=== PATIENT | female | born 1970 | race Caucasian/White ===

== ENCOUNTER 2021-03-19 16:38 | Emergency (ER) | payer BC, SELFPAY ==
[2021-03-19 16:50] VITALS: BP 152/102; PULSE 99; RESP 18; TEMP 37.4; O2SAT 100
--- NOTE | 2021-03-19 17:09 | ED.FEMALEGU ---
HPI - Female Genitourinary General Chief complaint: Urogenital-Female Stated complaint: UTI Source: patient and RN notes reviewed Mode of arrival: ambulatory Limitations: no limitations History of Present Illness HPI Narrative: Dee Dee is a 51-year-old female patient who ambulated into the [facility] today with complaint of painful and frequent urination. Patient states it started within the last 2 days. Patient denies any back pain, fever, or chills. Patinet states she has swelling near her [place] gland; denies pain. MD elicited complaint: dysuria Related Data Home Medications Medication Instructions Recorded Confirmed No Home Medications 03/19/21 03/19/21 Allergies Allergy/AdvReac Type Severity Reaction Status Date / Time No Known Allergies Allergy Mild Verified 03/19/21 16:55 Review of Systems Review of Systems: CONSTITUTIONAL: Denies body aches, fever, chills, or sweats. EYES: Denies visual changes, redness, or discharge. ENT: Denies rhinorrhea, congestion, sore throat, or otalgia. CARDIOVASCULAR: Denies chest pain, palpitations, or edema. RESPIRATORY: Denies cough or dyspnea. GASTROINTESTINAL: Denies abdominal pain, nausea, vomiting, or diarrhea. GENITOURINARY: + dysuria denies hematuria. SKIN: Denies rash, itching, or wounds. MUSCULOSKELETAL: Denies back pain, joint pain, or myalgia. NEUROLOGIC: Denies headache, numbness, tingling, or weakness. PSYCH: Denies depression or anxiety. All systems reviewed & are unremarkable except as noted in HPI and below Exam Narrative: GENERAL: Well-appearing, well-nourished, and in no acute distress. HEAD: Normocephalic, atraumatic. EYES: EOMI. No redness or drainage. Conjunctivae normal. ENT: Mucous membranes pink and moist. Nares clear. No rhinorrhea. NECK: Normal AROM. Supple. No lymphadenopathy. CHEST: No respiratory distress. Clear to auscultation. ABDOMEN: Soft, nontender, nondistended, normal active bowel sounds. MUSCULOSKELETAL: No bony tenderness. EXTREMITIES: Normal range of motion. No edema. SKIN: Warm, dry, no rash. Capillary refill normal. Normal skin turgor. NEURO: No focal deficits. Alert and oriented x3. Gait steady. PSYCH: Normal affect. No signs of depression or anxiety. Course Vital Signs Vital signs: Vital Signs Temperature 37.4 C 03/19/21 16:50 Pulse Rate 99 03/19/21 16:50 Respiratory Rate 18 03/19/21 16:50 Blood Pressure 152/102 H 03/19/21 16:50 Pulse Oximetry 100 03/19/21 16:50 Temperature 37.4 C 03/19/21 16:50 Pulse Rate 99 03/19/21 16:50 Respiratory Rate 18 03/19/21 16:50 Blood Pressure 152/102 H 03/19/21 16:50 Pulse Oximetry 100 03/19/21 16:50 Reviewed. Pt has been instructed to follow up with her PCP regarding her elevated blood pressure today. MDM - Female Genitourinary MDM Narrative Medical decision making narrative: Patient has 1+ leukocyte in her urine. Patient has urinary frequency and painful urination. Patient states she does not want a gynecologic exam. Patient states she will go to her primary care for that exam if it is needed. Differential Diagnosis Differential diagnosis: Likely urinary tract infection, cystitis and other (cyst of skene's gland) Medical Records Attestation: I reviewed the patient's medical records. Lab Data Attestation: I reviewed the patient's lab results. Labs: Urine Glucose Negative Reference Range: Negative Urine Bilirubin Negative Reference Range: Negative Urine Ketone Negative Reference Range: Negative Urine Specific Bude 1.020 Reference Range:1.001-1.035 Urine Blood Negative Reference Range: Negative
== END 2021-03-19 17:24 | disposition home or self-care (01) ==
PROVIDERS: Emergency Provider Nurse Practitioner Family
DX: N39.0 Urinary tract infection, site not specified (principal)
CPT/HCPCS: 81003; 87077; 87086; 87088; 87186; 99213; G0463

== ENCOUNTER 2024-07-20 12:53 | Emergency (ER) | payer BC, SELFPAY ==
--- NOTE | ~2024-07-20 | CT_ITS ---
EXAMINATION: CT abdomen pelvis w con DATE: 07/20/2024 18:11 INDICATION: abdominal pain TECHNIQUE: Computed tomography (CT) of the abdomen and pelvis was performed with 100 mL Omnipaque-350 intravenous contrast. Automated exposure control and iterative reconstruction technique were employe d. The dose-length product was 240.79 mGy-cm. COMPARISON: None. FINDINGS: Lower thorax: Unremarkable Liver: Multiple cysts and/or hemangiomas and lesions that are too small to characterize. Biliary/Gallbladder: Gallbladder is normal. No bile duct dilation. Pancreas: No mass or duct dilation. Spleen: Normal. Adrenals:No mass. Kidneys: No suspicious mass, obstructing stone, or hydronephrosis. Bilateral subcentimeter renal hypo densities, too small to characterize but most likely represent cysts GI tract: Mild distal esophageal and gastric wall edema. No small or large bowel dilation. Normal skylar endix. Mesentery/Peritoneum: No ascites, mass, or free air. Retroperitoneum: No mass. Mild atherosclerotic arterial calcifications. Pelvis: Pelvic organs are within normal limits. Soft Tissues: Soft tissues and body wall unremarkable. Bones: No acute osseous finding. IMPRESSION: Mild esophagitis/gastritis. Otherwise, no acute abdominopelvic process detected Reviewed, dictated and finalized at location K. ING SPECIALIST
[2024-07-20 13:01] VITALS: BP 115/69; PULSE 91; RESP 18; TEMP 36.4; O2SAT 100
--- OUTSIDE RECORDS SUMMARY | 2024-07-20 14:33 | XMS_ITS | Encounter Summary ---
Author Organization [facility] Address [address] [place] [address] Care Team Providers Care Customer Field Representative Name Role Phone Unavailable Primary Care Provider Unavailabl e Encounter Details Date Type Department Care Team (Latest Contact Info) Description 09/12/2000 Outpatient Historical [facility] Bienvenido Terry MD [address] [facility] [address] [place], [place] [id number] Unspecified hearing loss (Primary Dx) Social History Tobacco Use Types Packs/Day Years Used Date Smoking Tobacco: Never Assessed Comments Unknown Sex and Gender Information Value Date Recorded Sex Assigned at Not on file Legal Sex Female 4:37 AM SHIPPER AND RECEIVING Gender Identity Not on file Sexual Orientation Not on file documented as of this encounter Plan of Treatment Not on file documented as of this encounter Visit Diagnoses Diagnosis Unspecified hearing loss- Primary documented in this encounter
--- OUTSIDE RECORDS SUMMARY | 2024-07-20 14:33 | XMS_ITS | Clinical Summary ---
Author Organization [facility] Address [address] [place] [address] Care Team Providers Care Delivery Person Name Role Phone Chato Truong DO Primary Care Provider + Allergies Active Allergy Reactions Criticality Noted Date Comments Amoxicillin Other (see comment) 02/09/2019 Abdominal cramping Erythromycin Nausea and Vomiting,Nausea Only,Other (see comment),Vomiting Low 02/09/2019 Reaction: Nausea, Vomiting, Medications No known medications Active Problems Problem Noted Date Diagnosed Date IFG (impaired fasting glucose) 01/30/2019 Atopic rhinitis 10/10/2013 Overview (01/18/2021): ALLERGIC RHINITIS NOS Immunizations Name Administration Dates Next Due Influenza (Generic) 02/24/2013 Influenza Adult (Generic) 03/27/2015 Tdap (Generic) 09/25/2015 Family History Medical History Relation Comments Diabetes Paternal Aunt Relation Status Comments Paternal Aunt Social History Tobacco Use Types Packs/Day Years Used Date Smoking Tobacco: Never Smokeless Tobacco: Never PHQ-2 Answer Date Recorded PHQ-2 Score - If the patient scores above 3, please move on to questions 3-9 0 01/18/2021 Comments Unknown Sex and Gender Information Value Date Recorded Sex Assigned at Not on file Legal Sex Female 2:03 PM CDT Gender Identity Not on file Sexual Orientation Not on file Occupation Industry Job Start Date Job End Date Not on file Not on file Not on file Not on file Last Filed Vital Signs Vital Sign Reading Time Taken Comments Blood Pressure 145/94 01/18/2021 1:57 PM CDT Pulse 80 01/18/2021 1:12 PM CDT Temperature 36.4 C (97.5 F) 01/18/2021 1:12 PM CDT Respiratory Rate 16 01/18/2021 1:12 PM CDT Oxygen Saturation 100% 01/18/2021 1:12 PM CDT Inhaled Oxygen Concentration - - Weight 58.5 kg (129 lb) 01/18/2021 1:12 PM CDT Height 158.8 cm (5' 2.5 ) 01/18/2021 1:12 PM CDT Body Mass Index 23.22 01/18/2021 1:12 PM CDT Plan of Treatment Health Maintenance Due Date Last Done Comments Cervical Cancer Screening Pa p Smear (Age 30 to 64) Every 3 Years 1972 Colorectal Cancer Screening Colonoscopy (10 Years) 1972 Hepatitis C 1990 Hepatitis B Vaccines (1 of 3 - 19+ 3-dose series) 1991 Cervical Cancer Screening Pa p with HPV Testing (Age 30 to 64) Every 5 Years 2002 Cervical Cancer Screening wi HPV 2002 Mammogram Screening 2012 Annual Physical 01/18/2022 01/18/2021 Zoster Vaccines (1 of 2) 2022 COVID-19 Vaccine (1 - 2023-2 5 season) 2024 Influenza Adult (#1) 2024 03/27/2015, 02/24/2013 DTaP, Tdap and Td Vaccines ( 2 - Td or Tdap) 09/24/2025 09/25/2015 Meningococcal B Vaccine Aged Out No l onger eligible based on patient's age to complete this topic Meningococcal Vaccine Aged Out No judi shannon eligible based on patient's age to complete this topic Pneumococcal Vaccine: Pediatrics (0 to 5 Years) and At-Risk Patients (6 to 64 Years) Aged Out No longer eligible b ased on patient's age to complete this topic RSV Immunizations Under 20 Months Aged Out No longer eligible b ased on patient's age to complete this topic Insurance [facility] Care Teams Delivery Person Relationship Specialty Start Date End Date Chato Truong DO [address] [place] [id number] PCP - General FAMILY PRACTICE 01/18/21
--- OUTSIDE RECORDS SUMMARY | 2024-07-20 14:33 | XMS_ITS | Encounter Summary ---
Author Organization [facility] Address [address] [place] [address] Care Team Providers Care Special Needs Teacher Name Role Phone Unavailable Primary Care Provider Unavailabl e Reason for Visit * Reason Onset Date Comments Follow Up 02/12/2019 351 phone number is disconnected Encounter Details Date Type Department Care Team (Late st Contact Info) Description 02/12/2019 Telephone [facility] [address] [place] [address] Stefani Montoya MD NO ADDRESS ON FILE Follow Up (351 phone number is disconnected) Social History Tobacco Use Types Packs/Day Years Used Date Smoking Tobacco: Never Alcohol Use Standard Drinks/Week Comments Yes 1 (1 standard drink = 0.6 oz pur e alcohol) Comments No Sex and Gender Information Value Date Recorded Sex Assigned at Not on file Legal Sex Female 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
--- OUTSIDE RECORDS SUMMARY | 2024-07-20 14:33 | XMS_ITS | Encounter Summary ---
Author Organization [facility] Address 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
--- OUTSIDE RECORDS SUMMARY | 2024-07-20 14:33 | XMS_ITS | Encounter Summary ---
Author Organization [facility] Address [address] [place] [address] Care Team Providers Care Hr Business Partner Consultant Name Role Phone Unavailable Primary Care Provider Unavailabl e Encounter Details Date Type Department Care Team (Late st Contact Info) Description 08/16/2004 Outpatient Historical [facility] Internal Medicine - [facility] [address] [facility] [address] [place] [address] Cely Kenney, Efrem Majano MD NO ADDRESS ON FILE Social History Tobacco Use Types Packs/Day Years Used Date Smoking Tobacco: Never Assessed Comments Unknown Sex and Gender Information Value Date Recorded Sex Assigned at Not on file Legal Sex Female 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
--- OUTSIDE RECORDS SUMMARY | 2024-07-20 14:33 | XMS_ITS | Clinical Summary ---
Author Organization [facility] Address [address] [place] [address] [place] [address] Care Team Providers Care Conference Planner Name Role Phone Unavailable Primary Care Provider Unavailabl e Allergies Active Allergy Reactions Criticality Noted Date Comments Amoxicillin Other (See comments) Reaction: ??per pharmacy, Erythromycin Nausea only,Vomiting Reaction: Nausea, Vomiting, Medications No known medications Active Problems Problem Noted Date Diagnosed Date IFG (impaired fasting glucose) 01/30/2019 Atopic rhinitis 10/10/2013 Overview (08/31/2016): ALLERGIC RHINITIS NOS Immunizations Immunization Administration Dates Next Due Influenza, Trivalent, High D ose, Split, Preservative Free, Intramuscular 03/27/2015 Influenza, Trivalent, IM (MDV) 02/24/2013 Tdap 09/25/2015 Surgical History Surgery Date Site/Laterality Comments OTHER SURGICAL HISTORY Colon Obstruction: ptl colectomy Medical History Medical History Date Comments 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 Hx Other Medical 2003 Fibroid Hx Other Medical Allergy-induced Asthma Hx Other Medical 1974 Colon Obstructi on Hx Other Medical CTS on R, natalie r History of multiple allergies Al lergies Hx Other Medical 2010 h/o PUPPS durin g ; Comments: CAH 01/27/2016 - Family History Medical History Relation Name Comments Diabetes type II Father's Brother Diabete s -Type II; Diabetes type II Father's Sister Diabetes -Type II; Hypothyroidism Maternal Grandmother Hypot hyroidism; /Hypothyroidism; Hypothyroidism Mother Hypothyroidis m; Hypothyroidism Mother's Sister Hypothyroi dism; Other Other 3 No family histo ry of Hypertension; Other Other 4 No family histo ry of Cancer, breast; Other Other 5 No family histo ry of Cancer, colon; Relation Name Status Comments Father's Brother Father's Sister Maternal Grandmother Mother Mother's Sister Other 1 Alive Other 2 Alive Other 3 Other 4 Other 5 Social History Tobacco Use Types Packs/Day Years Used Date Smoking Tobacco: Never Smokeless Tobacco: Never Alcohol Use Standard Drinks/Week Comments Yes 0 (1 standard drink = 0.6 oz pur e alcohol) PHQ-2 Answer Date Recorded PHQ-2 Score 0 01/30/2019 Comments Unknown Sex and Gender Information Value Date Recorded Sex Assigned at Not on file Legal Sex Female 4:04 PM GROUP HOME COUNSELOR Gender Identity Female 01/14/2019 1:38 PM CDT Sexual Orientation Straight 01/14/2019 1: 38 PM CDT 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
--- OUTSIDE RECORDS SUMMARY | 2024-07-20 14:33 | XMS_ITS | Encounter Summary ---
Author Organization [facility] Address [address] [place] [address] Care Team Providers Care Fiberglass Pipe Covering Supervisor Name Role Phone Unavailable Primary Care Provider Unavailabl e Encounter Details Date Type Department Care Team (Late st Contact Info) Description 08/04/1999 Outpatient Historical [facility] Internal Medicine - [facility] [address] [facility] [address] [place] [address] Cely Kenney, Efrem Majano MD NO ADDRESS ON FILE Social History Tobacco Use Types Packs/Day Years Used Date Smoking Tobacco: Never Assessed Comments Unknown Sex and Gender Information Value Date Recorded Sex Assigned at Not on file Legal Sex Female 4:37 AM CLOTH SHRINKER Gender Identity Not on file Sexual Orientation Not on file documented as of this encounter Plan of Treatment Not on file documented as of this encounter Visit Diagnoses Not on filedocumented in this encounter
--- OUTSIDE RECORDS SUMMARY | 2024-07-20 14:33 | XMS_ITS | Encounter Summary ---
Author Organization [facility] Address [address] [place] [address] Care Team Providers Care Virtual Classroom Manager Name Role Phone Unavailable Primary Care Provider Unavailabl e Encounter Details Date Type Department Care Team (Late st Contact Info) Description 12/16/2002 Outpatient Historical [facility] Internal Medicine - [facility] [address] [facility] [address] [place] [address] Cely Kenney, Efrem Majano MD NO ADDRESS ON FILE Social History Tobacco Use Types Packs/Day Years Used Date Smoking Tobacco: Never Assessed Comments Unknown Sex and Gender Information Value Date Recorded Sex Assigned at Not on file Legal Sex Female 4:37 AM BOROUGH COORDINATOR Gender Identity Not on file Sexual Orientation Not on file documented as of this encounter Plan of Treatment Not on file documented as of this encounter Visit Diagnoses Not on filedocumented in this encounter
--- OUTSIDE RECORDS SUMMARY | 2024-07-20 14:33 | XMS_ITS | Encounter Summary ---
Author Organization [facility] Address [address] [place] [address] Care Team Providers Care Equipment Lead Name Role Phone Unavailable Primary Care Provider Unavailabl e Encounter Details Date Type Department Care Team (Late st Contact Info) Description 08/09/2000 Outpatient Historical [facility] Internal Medicine - [facility] [address] [facility] [address] [place] [address] Cely Kenney, Efrem Majano MD NO ADDRESS ON FILE Social History Tobacco Use Types Packs/Day Years Used Date Smoking Tobacco: Never Assessed Comments Unknown Sex and Gender Information Value Date Recorded Sex Assigned at Not on file Legal Sex Female 4:37 AM INCOME TAX ANALYST Gender Identity Not on file Sexual Orientation Not on file documented as of this encounter Plan of Treatment Not on file documented as of this encounter Visit Diagnoses Not on filedocumented in this encounter
--- OUTSIDE RECORDS SUMMARY | 2024-07-20 14:33 | XMS_ITS | Encounter Summary ---
Author Organization [facility] Address [address] [place] [address] Care Team Providers Care Biodiesel Plant Superintendent Name Role Phone Unavailable Primary Care Provider Unavailabl e Encounter Details Date Type Department Care Team (Late st Contact Info) Description 08/29/2001 Outpatient Historical [facility] [address] [facility] [address] [place] [address] Shefali Alexandra MD [address] [place] [address] Social History Tobacco Use Types Packs/Day Years Used Date Smoking Tobacco: Never Assessed Comments Unknown Sex and Gender Information Value Date Recorded Sex Assigned at Not on file Legal Sex Female 4:37 AM DRYWALL STRIPPER HELPER Gender Identity Not on file Sexual Orientation Not on file documented as of this encounter Plan of Treatment Not on file documented as of this encounter Visit Diagnoses Not on filedocumented in this encounter
--- OUTSIDE RECORDS SUMMARY | 2024-07-20 14:33 | XMS_ITS | Encounter Summary ---
Author Organization [facility] Address [address] [place] [address] Care Team Providers Care Diversified Crops Farmer Name Role Phone Unavailable Primary Care Provider Unavailabl e Encounter Details Date Type Department Care Team (Late st Contact Info) Description 08/27/2000 Outpatient Historical [facility] Internal Medicine - [facility] [address] [facility] [address] [place] [address] Cely Kenney, Efrem Majano MD NO ADDRESS ON FILE Social History Tobacco Use Types Packs/Day Years Used Date Smoking Tobacco: Never Assessed Comments Unknown Sex and Gender Information Value Date Recorded Sex Assigned at Not on file Legal Sex Female 4:37 AM LAST PUTTER AWAY Gender Identity Not on file Sexual Orientation Not on file documented as of this encounter Plan of Treatment Not on file documented as of this encounter Visit Diagnoses Not on filedocumented in this encounter
--- OUTSIDE RECORDS SUMMARY | 2024-07-20 14:33 | XMS_ITS | Encounter Summary ---
Author Organization [facility] Address [address] [place] [address] Care Team Providers Care Contract Programmer Name Role Phone Unavailable Primary Care Provider Unavailabl e Encounter Details Date Type Department Care Team (Late st Contact Info) Description 08/20/2000 Outpatient Historical [facility] Internal Medicine - [facility] [address] [facility] [address] [place] [address] Cely Kenney, Efrem Majano MD NO ADDRESS ON FILE Social History Tobacco Use Types Packs/Day Years Used Date Smoking Tobacco: Never Assessed Comments Unknown Sex and Gender Information Value Date Recorded Sex Assigned at Not on file Legal Sex Female 4:37 AM EXTRUDER OPERATOR Gender Identity Not on file Sexual Orientation Not on file documented as of this encounter Plan of Treatment Not on file documented as of this encounter Visit Diagnoses Not on filedocumented in this encounter
--- OUTSIDE RECORDS SUMMARY | 2024-07-20 14:33 | XMS_ITS | Clinical Summary ---
Author Organization [facility] Address [address] [facility] [address] Care Team Providers Care Take Up Supervisor Name Role Phone Unavailable Primary Care Provider Unavailabl e Allergies Active Allergy Reactions Criticality Noted Date Comments Amoxicillin Other (See Comments) 02/09/2019 Reaction: ??per pharmacy, Erythromycin Other (See Comments),Nausea and Vomiting Low 02/09/2019 Medications No known medications Active Problems No known active problems Social History Tobacco Use Types Packs/Day Years Used Date Smoking Tobacco: Never Alcohol Use Standard Drinks/Week Comments Yes 1 (1 standard drink = 0.6 oz pur e alcohol) Comments No Sex and Gender Information Value Date Recorded Sex Assigned at Not on file Legal Sex Female 4:37 AM SKATE 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 Gender Identity Not on file Sexual Orientation Not on file Last Filed Vital Signs Vital Sign Reading Time Taken Comments Blood Pressure 158/101 02/16/2019 10:23 AM CDT Pulse 82 02/16/2019 10:23 AM CDT Temperature 36.8 C (98.2 F) 02/16/2019 10:23 AM CDT Respiratory Rate 18 02/16/2019 10:23 AM CDT Oxygen Saturation 98% 02/16/2019 10:23 AM CDT Inhaled Oxygen Concentration - - Weight 58.1 kg (128 lb) 02/09/2019 8:54 AM CDT Height 158.8 cm (5' 2.5 ) 02/09/2019 8:54 AM CDT Body Mass Index 23.04 02/09/2019 8:54 AM CDT Plan of Treatment Health Maintenance Due Date Last Done Comments HEPATITIS B VACCINES (1 of 3 - 19+ 3-dose series) 1991 CERVICAL CANCER SCREENING 2002 BREAST CANCER SCREENING 2012 COLORECTAL SCREENING 2017 Colorectal Cancer Screening 2017 FIT-DNA Q 3 years 2017 FIT/FOBT Q 1 year 2017 Flex Sig/CT Colonography Q 5 years 2017 ZOSTER VACCINE (1 of 2) 2022 INFLUENZA VACCINE (#1) 2023 03/27/2015, 2012 DTAP/TDAP/TD VACCINES (2 - Td or Tdap) 09/24/2025 [employer]
--- OUTSIDE RECORDS SUMMARY | 2024-07-20 14:33 | XMS_ITS | Referral Summary ---
Author Organization [facility] Address [address] [place] [address] [place] [address] Care Team Providers Care Entertainment Reporter Name Role Phone Unavailable Primary Care Provider [...] Influenza, Trivalent, IM (MDV) 02/24/2013 Tdap 09/25/2015 Social History Tobacco Use Types Packs/Day Years Used Date Smoking Tobacco: Never Smokeless Tobacco: Never Alcohol Use Standard Drinks/Week Comments Yes 0 (1 standard drink = 0.6 oz pur e alcohol) PHQ-2 Answer Date Recorded PHQ-2 Score 0 01/30/2019 Comments Unknown Sex and Gender Information Value Date Recorded Sex Assigned at Not on file Legal Sex Female 4:04 PM MODEL PHOTOGRAPHERS' Gender Identity Female 01/14/2019 1:38 PM CDT Sexual Orientation Straight 01/14/2019 1: 38 PM CDT 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
[2024-07-20 15:00] VITALS: BP 124/76; PULSE 70; RESP 16; TEMP 36.6; O2SAT 100
--- NOTE | 2024-07-20 15:00 | ED_ITS ---
HPI - Nausea/Vomiting/Diarrhea General Chief complaint: Nausea/Vomiting/Diarrhea <Sasha Anna PA-C - Last Filed: 07/20/24 18:38> Stated complaint: n/v <Sasha Anna PA-C - Last Filed: 07/20/24 18:38> Time Seen by Provider: 07/20/24 17:06 <Sasha Anna PA-C - Last Filed: 07/20/24 18:38> Focused HPI: 54-year-old female presents to the ED with at bedside for sudden-onset abdominal pain, N/ V/ D that started today while at work. Patient states she had one bite of a snack began vomiting and having diarrhea. She got in her car to go home and began having carpopedal spasms and tingling in her hands and her feet. She pulled over contacted EMS was transported to the ED for further evaluation. At the time of my exam she is reporting some nausea but states the carpal pedal spasm and tingling has resolved. Denies fever. GENERAL: Well-appearing, well-nourished, and in no acute distress. HEAD: Normocephalic, atraumatic. CHEST: Clear to auscultation. ?No respiratory distress. ABD: Normoactive bowel sounds. Abdomen soft with tenderness in the periumbilical region. No rebound guarding or rigidity. No CVA tenderness HEART: Regular rate and rhythm.? NEURO: ?Alert and oriented x3. Patient screened in triage and initial orders placed.? ?Additional care and disposition to be based upon?diagnostic testing and treatment. <Sasha Anna PA-C - Last Filed: 07/20/24 18:38> Focused HPI: 54-year-old female presents to the ED with at bedside for sudden-onset abdominal pain, N/ V/ D that started today while at work. Patient states she had 1 bite of her snack began vomiting and having diarrhea. She got in her car to go home and began having carpopedal spasms and tingling in her hands and her feet. She pulled over contacted EMS was transported to the ED for further evaluation. At the time of my exam she is reporting some nausea but states the carpal pedal spasm and tingling has resolved. Denies fever. GENERAL: Well-appearing, well-nourished, and in no acute distress. HEAD: Normocephalic, atraumatic. CHEST: Clear to auscultation. ?No respiratory distress. ABD: Normoactive bowel sounds. Abdomen soft with tenderness in the periumbilical region. No rebound guarding or rigidity. No CVA tenderness HEART: Regular rate and rhythm.? NEURO: ?Alert and oriented x3. Patient screened in triage and initial orders placed.? ?Additional care and disposition to be based upon?diagnostic testing and treatment. <Carrie Urban PA-C - Last Filed: 07/20/24 18:41> Related Data Allergies/Adverse reactions: Allergies Allergy/AdvReac Type Severity Reaction Status Date / Time erythromycin base AdvReac Mild Gastrointestinal Verified 03/19/21 19:23 Upset <Sasha Anna PA-C - Last Filed: 07/20/24 18:38> Review of Systems 2 Review of Systems: CONSTITUTIONAL: Denies fever GASTROINTESTINAL: Reports abdominal pain, nausea, vomiting <Carrie Urban PA-C - Last Filed: 07/20/24 18:41> All systems reviewed & are unremarkable except as noted in HPI and below < KIMMY Agosto Last Filed: 07/20/24 18:41> Exam 2 Narrative: GENERAL: Well-appearing, well-nourished, and in no acute distress. HEAD: Normocephalic, atraumatic. EYES: EOMI. CHEST: Clear to auscultation. No respiratory distress. No wheezes rales or rhonchi HEART: Regular rate and rhythm. No murmur heard. Normal peripheral pulses. ABDOMEN: Soft, nontender, nondistended, normal active bowel sounds. EXTREMITIES: Normal range of motion. No edema. SKIN: Warm, dry, no rash. NEURO: No focal deficits. Alert and oriented x3. PSYCH: Normal mood and affect <Carrie Urban PA-C - Last Filed: 07/20/24 18:41> Course Vital Signs Vital signs: Vital Signs Temperature 97.6 F 07/20/24 13:01 Pulse Rate 91 07/20/24 13:01 Respiratory Rate 18 07/20/24 13:01 Blood Pressure 115/69 07/20/24 13:01 Pulse Oximetry 100 07/20/24 13:01 Temperature 97.6 F 07/20/24 13:01 Pulse Rate 91 07/20/24 13:01 Respiratory Rate 18 07/20/24 13:01 Blood Pressure 115/69 07/20/24 13:01 Pulse Oximetry 100 07/20/24 13:01 <Sasha Anna PA-C - Last Filed: 07/20/24 18:38> Vital Signs Temperature 97.6 F 07/20/24 13:01 Pulse Rate 91 07/20/24 13:01 Respiratory Rate 18 07/20/24 13:01 Blood Pressure 115/69 07/20/24 13:01 Pulse Oximetry 100 07/20/24 13:01 Temperature 97.6 F 07/20/24 13:01 Pulse Rate 91 07/20/24 13:01 Respiratory Rate 18 07/20/24 13:01 Blood Pressure 115/69 07/20/24 13:01 Pulse Oximetry 100 07/20/24 13:01 <Carrie Urban PA-C - Last Filed: 07/20/24 18:41> MDM - Nausea/Vomiting/Diarrhea Lab Data Result diagrams: 07/20/24 15:26 07/20/24 15:26 <Sasha Anna PA-C - Last Filed: 07/20/24 18:38> Labs: Lab Results 07/20/24 07/20/24 Range/Units 15:26 17:15 WBC 20.3 H (4.5-10.0) K/mm3 RBC 4.92 (4.2-5.4) M/mm3 Hgb 14.3 (12.0-15.0) g/dL Hct 43.6 (37.0-47.0) % MCV 88.6 (80-100) fl MCH 29.1 (26-34) pg MCHC 32.8 (32-36) g/dl RDW 13.5 (11.5-14.5) % Plt Count 335 (150-375) k/mm3 MPV 9.8 (7.4-10.4) fl Immature Gran % (Auto) Not Reportable Neut % (Auto) Not Reportable Lymph % (Auto) Not Reportable Rooks % (Auto) Not Reportable Eos % (Auto) Not Reportable Baso % (Auto) Not Reportable Lymph # (Auto) Not Reportable [place] # (Auto) Not Reportable Eos # (Auto) Not Reportable Baso # (Auto) Not Reportable Abs Immat Gran (auto) Not Reportable Absolute Neuts (auto) Not Reportable Absolute Nucleated RBC Not Reportable Total Counted 100 Neutrophils % (Manual) 87 H (46-73) % Band Neutrophils % 4 (0-6) % Lymphocytes % (Manual) 5.0 L (18-44) % Monocytes % (Manual) 3 (3-9) % Eosinophils % (Manual) 1 (0-4) % Nucleated RBC % Not Reportable Abs Neuts (Manual) 18.47 H (1.7-7.2) K/mm3 Abs Lymphs (Manual) 1.01 L (1.1-4.5) K/mm3 Abs Monocytes (Manual) 0.60 (0.1-0.90) K/mm3 Absolute Eos (Manual) 0.20 (0.02-0.50) K/mm3 Platelet Estimate Adequate (Adequate) Schistocytes None seen Sodium 140 (137-145) mmol/L Potassium 3.8 (3.4-5.0) mmol/L Chloride 103 (98-107) mmol/L Carbon Dioxide 22 (22-30) mmol/L Anion Gap 15 H (4-12) mmol/L BUN 22 H (7-17) mg/dL Creatinine 0.68 L (0.7-1.0) mg/dL Estim Creat Clear Calc 66 ml/min Estimated GFR > 60 (59 - ) Glucose 108 (65-110) mg/dL Calcium 9.6 (8.4-10.2) mg/dL Total Bilirubin 1.0 (0.2-1.3) mg/dL AST 26 (14-36) U/L ALT 20 (6-35) U/L Alkaline Phosphatase 34 L (38-126) U/L Total Protein 8.0 (6.3-8.2) g/dL Albumin 4.8 (3.5-5.1) g/dL Lipase 47 (23-300) U/L Urine Color Yellow (Yellow) Urine Appearance Clear (Clear) Urine pH 5.0 (5.0-9.0) Ur Specific [place] 1.026 (1.001-1.035) Urine Protein Negative (Negative) mg/dL Urine Glucose (UA) Negative (Negative) mg/dL Urine Ketones 2+ H (Negative) mg/dL Ur Blood (Man) Negative (Negative) Urine Nitrate Negative (Negative) Urine Bilirubin Negative (Negative) Urine Urobilinogen 0.2 (<2.0) mg/dL Leukocyte Esterase Rfl Negative (Negative) CROW/UL <Sasha Anna PA-C - Last Filed: 07/20/24 18:38> Lab Results 07/20/24 07/20/24 Range/Units 15:26 17:15 WBC 20.3 H (4.5-10.0) K/mm3 RBC 4.92 (4.2-5.4) M/mm3 Hgb 14.3 (12.0-15.0) g/dL Hct 43.6 (37.0-47.0) % MCV 88.6 (80-100) fl MCH 29.1 (26-34) pg MCHC 32.8 (32-36) g/dl RDW 13.5 (11.5-14.5) % Plt Count 335 (150-375) k/mm3 MPV 9.8 (7.4-10.4) fl Immature Gran % (Auto) Not Reportable Neut % (Auto) Not Reportable Lymph % (Auto) Not Reportable Rooks % (Auto) Not Reportable Eos % (Auto) Not Reportable Baso % (Auto) Not Reportable Lymph # (Auto) Not Reportable [place] # (Auto) Not Reportable Eos # (Auto) Not Reportable Baso # (Auto) Not Reportable Abs Immat Gran (auto) Not Reportable Absolute Neuts (auto) Not Reportable Absolute Nucleated RBC Not Reportable Total Counted 100 Neutrophils % (Manual) 87 H (46-73) % Band Neutrophils % 4 (0-6) % Lymphocytes % (Manual) 5.0 L (18-44) % Monocytes % (Manual) 3 (3-9) % Eosinophils % (Manual) 1 (0-4) % Nucleated RBC % Not Reportable Abs Neuts (Manual) 18.47 H (1.7-7.2) K/mm3 Abs Lymphs (Manual) 1.01 L (1.1-4.5) K/mm3 Abs Monocytes (Manual) 0.60 (0.1-0.90) K/mm3 Absolute Eos (Manual) 0.20 (0.02-0.50) K/mm3 Platelet Estimate Adequate (Adequate) Schistocytes None seen Sodium 140 (137-145) mmol/L Potassium 3.8 (3.4-5.0) mmol/L Chloride 103 (98-107) mmol/L Carbon Dioxide 22 (22-30) mmol/L Anion Gap 15 H (4-12) mmol/L BUN 22 H (7-17) mg/dL Creatinine 0.68 L (0.7-1.0) mg/dL Estim Creat Clear Calc 66 ml/min Estimated GFR > 60 (59 - ) Glucose 108 (65-110) mg/dL Calcium 9.6 (8.4-10.2) mg/dL Total Bilirubin 1.0 (0.2-1.3) mg/dL AST 26 (14-36) U/L ALT 20 (6-35) U/L Alkaline Phosphatase 34 L (38-126) U/L Total Protein 8.0 (6.3-8.2) g/dL Albumin 4.8 (3.5-5.1) g/dL Lipase 47 (23-300) U/L Urine Color Yellow (Yellow) Urine Appearance Clear (Clear) Urine pH 5.0 (5.0-9.0) Ur Specific [place] 1.026 (1.001-1.035) Urine Protein Negative (Negative) mg/dL Urine Glucose (UA) Negative (Negative) mg/dL Urine Ketones 2+ H (Negative) mg/dL Ur Blood (Man) Negative (Negative) Urine Nitrate Negative (Negative) Urine Bilirubin Negative (Negative) Urine Urobilinogen 0.2 (<2.0) mg/dL Leukocyte Esterase Rfl Negative (Negative) CROW/UL <Carrie Urban PA-C - Last Filed: 07/20/24 18:41> Discharge Plan Discharge Clinical Impression: Gastroenteritis <Sasha Anna PA-C - Last Filed: 07/20/24 18:38> Patient Disposition: Home, Self-Care <Sasha Anna PA-C - Last Filed: 07/20/24 18:38> Condition: Improved <Sasha Anna PA-C - Last Filed: 07/20/24 18:38> Instructions: Gastroenteritis (ED) <Sasha Anna PA-C - Last Filed: 07/20/24 18:38> Additional Instructions: Return to the ER if you experience fever, worsening abdominal pain with nausea and vomiting, you are unable to keep down liquids or solids, or any other symptoms that are concerning to you Small, frequent meals. [place] diet. Remain well hydrated. Ondansetron as needed for nausea Follow up with primary care doctor <KIMMY Chan Last Filed: 07/20/24 18:38> Patient Language: Indonesian <KIMMY Chan Last Filed: 07/20/24 18:38> Prescriptions: New ondansetron 4 mg tablet,disintegrating 4 mg PO Q8H PRN (Reason: nausea and vomiting) Qty: 10 0RF No Action sulfamethoxazole-trimethoprim [Bactrim DS] 800-160 mg tablet 1 tablet PO Q12H Qty: 20 0RF <KIMMY Chan Last Filed: 07/20/24 18:38> Follow-up/Referrals: PHYSICIAN,VICE PRESIDENT QUALITY IMPROVEMENT [Primary Care Provider] - Dae Rocha MD [Physician] - <KIMMY Chan Last Filed: 07/20/24 18:38>
--- NOTE | 2024-07-20 15:27 | PC.NURSE ---
Patient refused covid swab
[2024-07-20 15:35] LABS: Hematocrit 43.6 % (37.0-47.0); Hemoglobin 14.3 g/dL (12.0-15.0); Mean Corpuscular HGB Conc 32.8 g/dl (32-36); Mean Corpuscular Hemoglobin 29.1 pg (26-34); Mean Corpuscular Volume 88.6 fl (80-100); Mean Platelet Volume 9.8 fl (7.4-10.4); Platelet Count Result 335 k/mm3 (150-375); Red Blood Count 4.92 M/mm3 (4.2-5.4); Red Cell Distribution Width 13.5 % (11.5-14.5); White Blood Count 20.3 K/mm3 (4.5-10.0)
[2024-07-20 16:16] LABS: Band Neutrophils Percent 4 % (0-6); Eosinophils Percent Manual 1 % (0-4); Lymphocytes Absolute Manual 1.01 K/mm3 (1.1-4.5); Monocytes Percent Manual 3 % (3-9); Neutrophils Absolute Manual 18.47 K/mm3 (1.7-7.2); Neutrophils Percent Manual 87 % (46-73); Platelet Estimate Adequate (Adequate); Schistocytes None Seen; Total Cells Counted 100
[2024-07-20 16:23] LABS: Alanine Aminotransferase 20 U/L (6-35); Albumin Level 4.8 g/dL (3.5-5.1); Alkaline Phosphatase 34 U/L (38-126); Anion Gap 15 mmol/L (4-12); Aspartate Amino Transferase 26 U/L (14-36); Blood Urea Nitrogen 22 mg/dL (7-17); Calcium 9.6 mg/dL (8.4-10.2); Carbon Dioxide 22 mmol/L (22-30); Chloride 103 mmol/L (98-107); Estimated CRCL calculation 66 ml/min; Estimated Glomerular Filt Rate > 60; Glucose 108 mg/dL (65-110); Lipase 47 U/L (23-300); Potassium 3.8 mmol/L (3.4-5.0); Sodium 140 mmol/L (137-145)
[2024-07-20 17:28] LABS: Add Urine Microscopic? NO; Appearance Urine Clear (Clear); Bilirubin Urine Negative (Negative); Blood Urine Negative (Negative); Color Urine Yellow (Yellow); Glucose Urine UA Negative (Negative); Ketones Urine 2+ mg/dL (Negative); Leukocyte Esterase Ur Negative LEU/UL (Negative); Nitrate Urine Negative (Negative); Protein Urine Negative (Negative); Specific Grav Ur 1.026 (1.001-1.035); Urobilinogen Urine 0.2 mg/dL (<2.0)
[2024-07-20] MEDS: SODIUM CHLORIDE 0.9% IV 1,000 ML 999 ML IV CONT (17:50)
[2024-07-20] MEDS: FAMOTIDINE 20 MG/2 ML VIAL IV PUSH (17:51)
[2024-07-20] MEDS: ONDANSETRON INJ 4 MG/2 ML VIAL IV PUSH (17:51)
[2024-07-20 18:47] VITALS: BP 118/68; PULSE 70; RESP 16; TEMP 36.6; O2SAT 100
--- OUTSIDE RECORDS SUMMARY | 2024-07-20 18:58 | XMS_ITS | Clinical Summary ---
Author Organization [facility] Address [address] [place] [address] Care Team Providers Care Extruder Name Role Phone Chato Truong DO Primary [...] patient's age to complete this topic Insurance [facility] Care Teams Extruder Relationship Specialty Start Date End Date Chato Truong DO [address] [place] [id number] PCP - General FAMILY PRACTICE 01/18/21
--- OUTSIDE RECORDS SUMMARY | 2024-07-20 18:58 | XMS_ITS | Encounter Summary ---
Author Organization [facility] Address [address] [place] [address] Care Team Providers Care Marine Engineering Technicians Name Role Phone Unavailable Primary Care Provider Unavailabl e Encounter Details Date Type Department Care Team (Late st Contact Info) Description 08/09/2000 Outpatient Historical [facility] Internal Medicine - [facility] [address] [facility] [address] [place] [address] Cely Kenney, Efrem Majano MD NO ADDRESS ON FILE Social History Tobacco Use Types Packs/Day Years Used Date Smoking Tobacco: Never Assessed Comments Unknown Sex and Gender Information Value Date Recorded Sex Assigned at Not on file 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
--- OUTSIDE RECORDS SUMMARY | 2024-07-20 18:58 | XMS_ITS | Encounter Summary ---
Author Organization [facility] Address 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
--- OUTSIDE RECORDS SUMMARY | 2024-07-20 18:58 | XMS_ITS | Encounter Summary ---
Author Organization [facility] Address [address] [place] [address] Care Team Providers Care Boilermaking Supervisor Name Role Phone Unavailable Primary Care Provider Unavailabl e Encounter Details Date Type Department Care Team (Late st Contact Info) Description 08/29/2001 Outpatient Historical [facility] Medical [place] [address] [address] [place] [address] Shefali Alexandra MD [address] [place] [address] Social History Tobacco Use Types Packs/Day Years Used Date Smoking Tobacco: Never Assessed Comments Unknown Sex and Gender Information Value Date Recorded Sex Assigned at Not on file Legal Sex Female 4:37 AM RESOURCE 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
--- OUTSIDE RECORDS SUMMARY | 2024-07-20 18:58 | XMS_ITS | Encounter Summary ---
Author Organization [facility] Address [address] [place] [address] Care Team Providers Care Cook Ice Cream Name Role Phone Unavailable Primary Care Provider Unavailabl e Encounter Details Date Type Department Care Team (Late st Contact Info) Description 08/27/2000 Outpatient Historical [facility] Internal Medicine - [facility] [address] [facility] [address] [place] [address] Cely Kenney, Efrem Majano MD NO ADDRESS ON FILE Social History Tobacco Use Types Packs/Day Years Used Date Smoking Tobacco: Never Assessed Comments Unknown Sex and Gender Information Value Date Recorded Sex Assigned at Not on file 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
--- OUTSIDE RECORDS SUMMARY | 2024-07-20 18:58 | XMS_ITS | Encounter Summary ---
Author Organization [facility] Address [address] [place] [address] Care Team Providers Care Vocational Rehabilitation Counselor Name Role Phone Unavailable Primary Care Provider Unavailabl e Reason for Visit * Reason Onset Date Comments Follow Up 02/12/2019 351 phone number is disconnected Encounter Details Date Type Department Care Team (Late st Contact Info) Description 02/12/2019 Telephone [facility] [address] [place] [address] Stefani Montoya MD NO ADDRESS [...] on file Legal Sex Female 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
--- OUTSIDE RECORDS SUMMARY | 2024-07-20 18:58 | XMS_ITS | Clinical Summary ---
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
--- OUTSIDE RECORDS SUMMARY | 2024-07-20 18:58 | XMS_ITS | Encounter Summary ---
Author Organization [facility] Address [address] [place] [address] Care Team Providers Care Corporate Legal Assistant Name Role Phone Unavailable Primary Care Provider Unavailabl e Encounter Details Date Type Department Care Team (Late st Contact Info) Description 12/16/2002 Outpatient Historical [facility] Internal Medicine - [facility] [address] [facility] [address] [place] [address] Cely Kenney, Efrem Majano MD NO ADDRESS ON FILE Social History Tobacco Use Types Packs/Day Years Used Date Smoking Tobacco: Never Assessed Comments Unknown Sex and Gender Information Value Date Recorded Sex Assigned at Not on file Legal 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
--- OUTSIDE RECORDS SUMMARY | 2024-07-20 18:58 | XMS_ITS | Referral Summary ---
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
--- OUTSIDE RECORDS SUMMARY | 2024-07-20 18:58 | XMS_ITS | Encounter Summary ---
Author Organization [facility] Address [address] [place] [address] Care Team Providers Care Road Roller Engineer Name Role Phone Unavailable Primary Care Provider Unavailabl e Encounter Details Date Type Department Care Team (Latest Contact Info) Description 09/12/2000 Outpatient Historical [facility] Bienvenido Terry MD [address] [facility] [address] [place], [place] [id number] Unspecified hearing loss (Primary Dx) Social History Tobacco Use Types Packs/Day Years Used Date Smoking Tobacco: Never Assessed Comments Unknown Sex and Gender Information Value Date Recorded Sex Assigned at Not on file Legal Sex Female 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
--- OUTSIDE RECORDS SUMMARY | 2024-07-20 18:58 | XMS_ITS | Encounter Summary ---
Author Organization [facility] Address [address] [place] [address] Care Team Providers Care Tool/Die Maker Name Role Phone Unavailable Primary Care Provider Unavailabl e Encounter Details Date Type Department Care Team (Late st Contact Info) Description 08/16/2004 Outpatient Historical [facility] Internal Medicine - [facility] [address] [facility] [address] [place] [address] Cely Kenney, Efrem Majano MD NO ADDRESS ON FILE Social History Tobacco Use Types Packs/Day Years Used Date Smoking Tobacco: Never Assessed Comments Unknown Sex and Gender Information Value Date Recorded Sex Assigned at Not on file Legal Sex Female 4:37 AM DRY BOSS Gender Identity Not on file Sexual Orientation Not on file documented as of this encounter Plan of Treatment Not on file documented as of this encounter Visit Diagnoses Not on filedocumented in this encounter
--- OUTSIDE RECORDS SUMMARY | 2024-07-20 18:58 | XMS_ITS | Encounter Summary ---
Author Organization [facility] Address [address] [place] [address] Care Team Providers Care Drug Abuse Worker Name Role Phone Unavailable Primary Care Provider Unavailabl e Encounter Details Date Type Department Care Team (Late st Contact Info) Description 08/04/1999 Outpatient Historical [facility] Internal Medicine - [facility] [address] [facility] [address] [place] [address] Cely Kenney, Efrem Majano MD NO ADDRESS ON FILE Social History Tobacco Use Types Packs/Day Years Used Date Smoking Tobacco: Never Assessed Comments Unknown Sex and Gender Information Value Date Recorded Sex Assigned at Not on file 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
--- OUTSIDE RECORDS SUMMARY | 2024-07-20 18:58 | XMS_ITS | Clinical Summary ---
Author Organization [facility] Address [address] [address] Care Team Providers Care Telephone Supervisor Name Role Phone Unavailable Primary Care [...] on file Legal Sex Female 4:37 AM TREATER Gender Identity Not on file Sexual Orientation [...] (2 - Td or Tdap) 09/24/2025 Insurance [employer]
--- OUTSIDE RECORDS SUMMARY | 2024-07-20 18:58 | XMS_ITS | Encounter Summary ---
Author Organization [facility] Address [address] [place] [address] Care Team Providers Care Crystalizer Name Role Phone Unavailable Primary Care Provider Unavailabl e Encounter Details Date Type Department Care Team (Late st Contact Info) Description 08/20/2000 Outpatient Historical [facility] - [facility] [address] [facility] [address] [place] [address] Cely Kenney, Efrem Majano MD NO ADDRESS ON FILE Social History Tobacco Use Types Packs/Day Years Used Date Smoking Tobacco: Never Assessed Comments Unknown Sex and Gender Information Value Date Recorded Sex Assigned at Not on file Legal Sex Female 4:37 AM GI PHYSICIAN Gender Identity Not on file Sexual Orientation Not on file documented as of this encounter Plan of Treatment Not on file documented as of this encounter Visit Diagnoses Not on filedocumented in this encounter
== END 2024-07-20 18:50 | disposition home or self-care (01) ==
PROVIDERS: Physician Assistant; Emergency Provider Physician Assistant
DX: K52.9 Noninfective gastroenteritis and colitis, unspecified (principal)
CPT/HCPCS: 36415; 74177; 80053; 81003; 83690; 85025; 96361; 96374; 96375; 99284; J2405; J7030; Q9967